=== PATIENT | female | born 1950 | race Caucasian/White ===

== ENCOUNTER 2019-09-19 09:23 | Emergency (ER) | payer MEDICARE, OTHER ==
[2019-09-19] MEDS ORDERED: Sodium Chloride 0.9% 10 ML Syringe FLUSH PRN (10:05)
[2019-09-19] MEDS ORDERED: Ondansetron 4 MG/2 ML SDV IVPUSH ONE (10:05)
[2019-09-19] MEDS ORDERED: Sodium Chloride 0.9% 1,000 ML IV STA (10:05)
[2019-09-19] MEDS ORDERED: HYDROmorphone 0.5 MG/0.5 ML Syringe IVPUSH ONE (10:06)
[2019-09-19] MEDS ORDERED: Famotidine 20 MG/2 ML SDV IVPUSH ONE (10:07)
--- NOTE | 2019-09-19 11:04 | EDM.PDOC ---
ED HPI GENERAL MEDICAL PROBLEM - General Chief Complaint: Abdominal Pain Stated Complaint: ABDOMINAL PAIN Time Seen by Provider: 09/19/19 09:36 Source of Information: Reports: Patient History Limitations: Reports: No Limitations - History of Present Illness INITIAL COMMENTS - FREE TEXT/NARRATIVE: The patient presents with nausea and abdominal pain. This has been going on for about 3 weeks. The yokasta has been worse the past couple of days. The pain is worse after eating and at night. She has no fever, chills, cough, congestion or runny nose. She still has her gallbladder and appendix. She feels some burning in her chest at times. She has no shortness of breath with it. She has no dysuria or diarrhea. Onset: Gradual Duration: Week(s): (3) Location: Reports: Chest, Abdomen Quality: Reports: Burning, Sharp Severity: Moderate Improves with: Reports: None Worsens with: Reports: None Associated Symptoms: Reports: Chest Pain, Nausea/Vomiting. Denies: Cough, Fever /Chills, Headaches, Shortness of Breath Epigastric Pain Score (Numeric/FACES): 4 - Related Data Allergies Allergy/AdvReac Type Severity Reaction Status Date / Time tramadol Allergy Cannot Verified 09/19/19 09:32 Remember lisinopril AdvReac Cough Verified 09/19/19 09:32 meperidine AdvReac Nausea and Verified 09/19/19 09:32 Vomiting Home Meds: Home Meds Ascorbic Acid [Vitamin C] 500 mg PO BID 09/19/19 [History] Calcium Carbonate [Calcium] 1,000 mg PO ASDIRECTED 09/19/19 [History] Cholecalciferol (Vitamin D3) [Vitamin D3] 1,000 unit PO DAILY 09/19/19 [History] Cyanocobalamin (Vitamin B-12) [Vitamin B-12] 2,500 mcg PO DAILY 09/19/19 [ History] Dulaglutide [Trulicity] 1.5 mg SQ ASDIRECTED 09/19/19 [History] Estrogens, Conjugated [Premarin] 0.625 mg PO DAILY 09/19/19 [History] Fish Oil/[place]-3 Fatty Acids [Fish Oil 1,000 MG] 1 dose PO ASDIRECTED 09/19/19 [ History] Fluconazole [Diflucan] 150 mg PO DAILY 09/19/19 [History] Losartan [Cozaar] 25 mg PO DAILY 09/19/19 [History] Omeprazole Magnesium [Prilosec Otc] 20 mg PO DAILY #15 tablet. 09/19/19 [Rx] Pantoprazole [ProTONIX] 40 mg PO DAILY 09/19/19 [History] Pravastatin [Pravachol] 40 mg PO DAILY 09/19/19 [History] Red Yeast Rice 1 dose PO ASDIRECTED 09/19/19 [History] glipiZIDE [Glipizide Xl] 2.5 mg PO DAILY 09/19/19 [History] metFORMIN [Glucophage XR] 500 mg PO BID 09/19/19 [History] ED ROS GENERAL - Review of Systems Review Of Systems: See Below Constitutional: Reports: No Symptoms HEENT: Reports: No Symptoms Respiratory: Reports: No Symptoms Cardiovascular: Reports: Chest Pain Endocrine: Reports: No Symptoms GI/Abdominal: Reports: Abdominal Pain, Nausea. Denies: Diarrhea, Vomiting : Reports: No Symptoms Musculoskeletal: Reports: No Symptoms ED EXAM, GI/ABD - Physical Exam Exam: See Below Exam Limited By: No Limitations General Appearance: Alert, No Apparent Distress Ears: Normal External Exam Nose: Normal Inspection Head: Atraumatic, Normocephalic Neck: Normal Inspection Respiratory/Chest: No Respiratory Distress, Lungs Clear, Normal Breath Sounds Cardiovascular: Regular Rate, Rhythm, No Edema, No Murmur GI/Abdominal Exam: Soft, No Organomegaly, No Mass, Tender (Moderate tenderness to the epigastric region and RUQ) Back Exam: Normal Inspection EKG INTERPRETATION EKG Date: 09/19/19 Time: 10:21 Rhythm: NSR Rate (Beats/Min): 68 Le[place]: LAD-Left Leoti Deviation P-Wave: Present QRS: Normal ST-T: Normal QT: Normal EKG Interpretation Comments: Q waves in the inferior leads Course - Vital Signs Last Recorded V/S: Last Vital Signs Temp 97.5 F 09/19/19 09:29 Pulse 73 09/19/19 09:29 Resp 16 09/19/19 09:29 BP 154/92 H 09/19/19 09:29 Pulse Ox 100 09/19/19 09:29 - Orders/Labs/Meds Orders: Active Orders 24 hr Category Date Time Status EKG Documentation Completion [RC] ASDIRECTED Care 09/19/19 10:06 Active Peripheral IV Care [RC] . DIRECTED Care 09/19/19 10:05 Active Sodium Chloride 0.9% [Saline Flush] Med 09/19/19 10:05 Active 10 ml FLUSH ASDIRECTED PRN ED Antiemetic Medication Reflex [OM.PC] Stat Oth 09/19/19 10:05 Ordered Peripheral IV Insertion Adult [OM.PC] Stat Oth 09/19/19 10:05 Ordered EKG 12 Lead [EK] Stat Ther 09/19/19 10:06 Ordered Medication Orders Sodium Chloride (Saline Flush) 10 ml FLUSH ASDIRECTED PRN PRN Reason: Keep Vein Open Last Admin: 09/19/19 10:23 Dose: 10 ml Labs: Laboratory Tests 09/19/19 09/19/19 09/19/19 Range/Units 09:55 09:55 11:10 WBC 6.80 (3.98-10.04) K/mm3 RBC 4.80 (3.98-5.22) M/mm3 Hgb 14.0 (11.2-15.7) gm/dl Hct 42.5 (34.1-44.9) % MCV 88.5 (79.4-94.8) fl MCH (25.6-32.2) pg MCHC 32.9 (32.2-35.5) g/dl RDW Std Deviation 43.1 (36.4-46.3) fL Plt Count 207 (182-369) K/mm3 MPV 9.6 (9.4-12.3) fl Neut % (Auto) 64.7 (34.0-71.1) % Lymph % (Auto) 26.2 (19.3-51.7) % Taney % (Auto) 6.6 (4.7-12.5) % Eos % (Auto) 1.9 (0.7-5.8) Baso % (Auto) 0.3 (0.1-1.2) % Neut # (Auto) 4.40 (1.56-6.13) K/mm3 Lymph # (Auto) 1.78 (1.18-3.74) K/mm3 Taney # (Auto) 0.45 H (0.24-0.36) K/mm3 Eos # (Auto) 0.13 (0.04-0.36) K/mm3 Baso # (Auto) 0.02 (0.01-0.08) K/mm3 Manual Slide Review Not Reportable Sodium 144 (136-145) mEq/L Potassium 4.1 (3.5-5.1) mEq/L Chloride 106 (98-107) mEq/L Carbon Dioxide 25 (21-32) mEq/L Anion Gap 17.1 H (5-15) BUN 22 H (7-18) mg/dL Creatinine 1.1 H (0.55-1.02) mg/dL Est Cr Clr Drug Dosing 39.25 mL/min Estimated GFR (MDRD) 50 (>60) mL/min BUN/Creatinine Ratio 20.0 H (14-18) Glucose 100 (80-115) mg/dL Calcium 9.9 (8.5-10.1) mg/dL Total Bilirubin 0.5 (0.2-1.0) mg/dL AST 12 L (15-37) U/L ALT 33 (14-59) U/L Alkaline Phosphatase 62 (46-116) U/L Troponin I < 0.017 (0.00-0.056) ng/mL Total Protein 7.2 (6.4-8.2) g/dl Albumin 4.0 (3.4-5.0) g/dl Globulin 3.2 gm/dL Albumin/Globulin Ratio 1.3 (1-2) Lipase 158 (73-393) U/L Urine Color Yellow (Yellow) Urine Appearance Clear (Clear) Urine pH 5.5 (5.0-8.0) Ur Specific Cass 1.025 (1.005-1.030) Urine Protein Negative (Negative) Urine Glucose (UA) Negative (Negative) Urine Ketones Negative (Negative) Urine Occult Blood Negative (Negative) Urine Nitrite Negative (Negative) Urine Bilirubin Negative (Negative) Urine Urobilinogen 0.2 (0.2-1.0) Ur Leukocyte Esterase 1+ H (Negative) Urine RBC 0-5 (0-5) /hpf Urine WBC 5-10 H (0-5) /hpf Ur Squamous Epith Cells 0-5 (0-5) /hpf Amorphous Sediment Few H (NOT SEEN) /hpf Urine Bacteria Few (FEW) /hpf Urine Mucus Not seen (FEW) /hpf Meds: Medications Generic Name Dose Route Start Last Admin Trade Name Freq PRN Reason Stop Dose Admin Sodium Chloride 10 ml 09/19/19 10:05 09/19/19 10:23 Saline Flush FLUSH 10 ml ASDIRECTED PRN Administration Keep Vein Open Discontinued Medications Generic Name Dose Route Start Last Admin Trade Name Lazaro PRN Reason Stop Dose Admin Famotidine 20 mg 09/19/19 10:07 09/19/19 10:23 Pepcid IVPUSH 09/19/19 10:08 20 mg ONETIME ONE Administration Hydromorphone HCl 0.5 mg 09/19/19 10:06 Dilaudid IVPUSH 09/19/19 10:07 ONETIME ONE Sodium Chloride 1,000 mls @ 1,000 mls/hr 09/19/19 10:05 09/19/19 10:23 Normal Saline IV 09/19/19 11:04 1,000 mls/hr .BOLUS STA Administration Ondansetron HCl 4 mg 09/19/19 10:05 09/19/19 10:23 Zofran IVPUSH 09/19/19 10:06 4 mg ONETIME ONE Administration - Re-Assessments/Exams Free Text/Narrative Re-Assessment/Exam: 09/19/19 11:04 I ordered an IV NS 1L bolus, zofran 4mg IV, labs, UA and an US of her abdomen and pelvis. 09/19/19 12:29 Her anion gap was elevated at 17.1. Her creatinine was slightly elevated at 1.1. Her troponin was negative. Her EKG show a NSR with no acute changes. 09/19/19 12:40 Her CBC looks good. Her lipase was normal. Her UA shows a UTI. Her US shows gallbladder wall thickening most likely relating to less than optimal distention. Mild amount of sludge seen within the gallbladder. No biliary duct dilatation or pericholecystic fluid is seen. Small cyst within the right kidney. No additional abnormality is appreciated on right upper quadrant abdominal US. Departure - Departure Time of Disposition: 12:50 Disposition: Home, Self-Care 01 Condition: Good Clinical Impression: Gallbladder sludge, Biliary colic UTI (urinary tract infection) Qualifiers: Urinary tract infection type: site unspecified Hematuria presence: without hematuria Qualified Code(s): N39.0 - Urinary tract infection, site not specified - Discharge Information *PRESCRIPTION DRUG MONITORING PROGRAM REVIEWED*: Not Applicable *COPY OF PRESCRIPTION DRUG MONITORING REPORT IN PATIENT DORIE: Not Applicable Prescriptions: Omeprazole Magnesium [Prilosec Otc] 20 mg PO DAILY #15 tablet.dr Referrals: Chikis Andrew PA-C [Primary Care Provider] - Joseph Rojas MD [Physician] - 1 Week Forms: ED Department Discharge Additional Instructions: Try to avoid fried, fatty foods. Take tylenol or motrin or pain. Take the prilosec daily for 2 weeks. Take the keflex 2 times per day for 5 days. Follow up with Dr Rojas. Please return if you are worse. Sepsis Event Note - Evaluation Sepsis Screening Result: No Definite Risk - Focused Exam Vital Signs: Vital Signs Temp Pulse Resp BP Pulse Ox 09/19/19 09:29 97.5 F 73 16 154/92 H 100 Date Exam was Performed: 09/19/19 Time Exam was Performed: 12:48 - My Orders Last 24 Hours: My Active Orders 09/19/19 10:05 Peripheral IV Care [RC] . DIRECTED Sodium Chloride 0.9% [Saline Flush] 10 ml FLUSH ASDIRECTED PRN ED Antiemetic Medication Reflex [OM.PC] Stat Peripheral IV Insertion Adult [OM.PC] Stat 09/19/19 10:06 EKG Documentation Completion [RC] ASDIRECTED EKG 12 Lead [EK] Stat - Assessment/Plan Last 24 Hours: My Active Orders 09/19/19 10:05 Peripheral IV Care [RC] . DIRECTED Sodium Chloride 0.9% [Saline Flush] 10 ml FLUSH ASDIRECTED PRN ED Antiemetic Medication Reflex [OM.PC] Stat Peripheral IV Insertion Adult [OM.PC] Stat 09/19/19 10:06 EKG Documentation Completion [RC] ASDIRECTED EKG 12 Lead [EK] Stat
--- NOTE | 2019-09-19 11:38 | US ---
Limited abdominal ultrasound: Multiple real-time images were obtained of the upper right abdomen. Pancreas appears within normal limits. Small portion of the pancreatic tail is not visualized on this exam. Liver contains no focal abnormality. Gallbladder not optimally distended. Gallbladder wall is somewhat thickened which most likely relates to lack of distention. Mild amount of sludge is seen within the gallbladder. No shadowing gallstones are noted. No biliary duct dilatation is seen. Multiple right renal cysts are noted. Largest cyst measures about 1.4 cm. Impression: 1. Gallbladder wall thickening most likely relating to less than optimal distention. Mild amount of sludge seen within the gallbladder. No biliary duct dilatation or pericholecystic fluid is seen. 2. Small cyst within the right kidney. 3. No additional abnormality is appreciated on right upper quadrant abdominal ultrasound. Diagnostic code #2 This report was dictated in [place] Standard Time
== END 2019-09-19 13:09 | disposition home or self-care (01) ==
LOC: JD.ED 09:23
DX: K80.50 Calculus of bile duct without cholangitis or cholecystitis without obstruction (principal); K82.8 Other specified diseases of gallbladder; N39.0 Urinary tract infection, site not specified; Z88.5 Allergy status to narcotic agent; Z88.8 Allergy status to other drugs, medicaments and biological substances
CPT/HCPCS: 36415; 76705; 80053; 81001; 83690; 84484; 85025; 93005; 96361; 96374; 96375; 99284; J2405; J3490; J7030; 93010

== ENCOUNTER 2019-10-12 06:57 | Day surgery (SDC) | payer MEDICARE, OTHER ==
[~2019-10-12 06:57] MED LIST: Lactated Ringers 1,000 ML IV SCH; Lidocaine 1%/Sod Bicarbonate in NS 8.4% 1 ML Syringe IDERM PRN; Sodium Chloride 0.9% 10 ML Syringe FLUSH PRN
--- NOTE | 2019-10-12 07:21 | PCM.PREANE ---
Preanesthetic Assessment - Procedure Proposed Procedure: EGD/Colonoscopy - Anesthesia/Transfusion/Family Hx Anesthesia History: Prior Anesthesia Reaction (nausea) Family History of Anesthesia Reaction: No Transfusion History: Unknown - Review of Systems General: No Symptoms Pulmonary: No Symptoms Cardiovascular: No Symptoms Gastrointestinal: No Symptoms Neurological: No Symptoms Other: Reports: Diabetes (121 @07:20), Neck Pain - Physical Assessment NPO Status Date: 10/11/19 NPO Status Time: 00:00 Height: 1.57 m Weight: 63.049 kg ASA Class: 2 Mental Status: Alert & Oriented x3 Airway Class: Mallampati = 2 Dentition: Reports: Normal Dentition Thyro-Mental Finger Breadths: 2 Mouth Opening Finger Breadths: 2 ROM/Head Extension: Full Lungs: Clear to Auscultation, Normal Respiratory Effort Cardiovascular: Regular Rate, Regular Rhythm - Imaging/EKG Impressions: EKG SR Rate 68 - Allergies Allergies/Adverse Reactions: Allergies Allergy/AdvReac Type Severity Reaction Status Date / Time tramadol Allergy Cannot Verified 10/11/19 16:07 Remember lisinopril AdvReac Cough Verified 10/11/19 16:07 meperidine AdvReac Nausea and Verified 10/11/19 16:07 Vomiting - Blood Blood Available: No Product(s) Available: None - Anesthesia Plan Pre-Op Medication Ordered: None - Acknowledgements Anesthesia Type Planned: MAC Pt an Appropriate Candidate for the Planned Anesthesia: Yes Alternatives and Risks of Anesthesia Discussed w Pt/Guardian: Yes Pt/Guardian Understands and Agrees with Anesthesia Plan: Yes PreAnesthesia Questionnaire HEENT History: Reports: Other (See Below) Other HEENT History: impacted cerumen, wears glasses, has dentures Cardiovascular History: Reports: High Cholesterol, Hypertension Respiratory History: Reports: None Gastrointestinal History: Reports: GERD, Other (See Below) Other Gastrointestinal History: acid reflux, hemorrhoid Genitourinary History: Reports: Other (See Below) Other Genitourinary History: dysuria, flank pain 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: 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: Other (See Below) Other OB/BYN History: vaginal atrophy, vaginitis, bacterial vagnosis Musculoskeletal History: Reports: Arthritis, Other (See Below) Other Musculoskeletal History: lumbago with sciatica, bunion correction Neurological History: Reports: Other (See Below) Other Neuro History: neck pain Psychiatric History: Reports: None Endocrine/Metabolic History: Reports: Diabetes, Type II Hematologic History: Reports: None Immunologic History: Reports: None Oncologic (Cancer) History: Reports: None Dermatologic History: Reports: None - Past Surgical History Head Surgeries/Procedures: Reports: None HEENT Surgical History: Reports: Cataract Surgery, Tonsillectomy Cardiovascular Surgical History: Reports: None Respiratory Surgical History: Reports: None GI Surgical History: Reports: Colonoscopy, EGD Female Surgical History: Reports: Hysterectomy Male Surgical History: Reports: None Endocrine Surgical History: Reports: None Neurological Surgical History: Reports: None Musculoskeletal Surgical History: Reports: Carpal Tunnel Oncologic Surgical History: Reports: None Dermatological Surgical History: Reports: None - SUBSTANCE USE Smoking Status *Q: Never Smoker Recreational Drug Use History: No - HOME MEDS Home Medications: Home Meds Ascorbic Acid [Vitamin C] 500 mg PO BID 09/19/19 [History] Cholecalciferol (Vitamin D3) [Vitamin D3] 1,000 unit PO DAILY 09/19/19 [History] Cyanocobalamin (Vitamin B-12) [Vitamin B-12] 2,500 mcg PO DAILY 09/19/19 [ History] Dulaglutide [Trulicity] 1.5 mg SQ WE 09/19/19 [History] Losartan [Cozaar] 25 mg PO DAILY 09/19/19 [History] Pantoprazole [ProTONIX] 40 mg PO DAILY 09/19/19 [History] Pravastatin [Pravachol] 40 mg PO DAILY 09/19/19 [History] Red Yeast Rice 600 dose PO Q48H 09/19/19 [History] glipiZIDE [Glipizide Xl] 2.5 mg PO DAILY 09/19/19 [History] metFORMIN [Glucophage XR] 1,000 mg PO BID 09/19/19 [History] Calcium Carbonate/Vitamin D3 [Calcium 500-Vit D3 400 Chew Tb] 2 tab PO Q48H [History] Fish Oil/DHA/EPA [Fish Oil 1,200 MG] 1 cap PO Q48H 10/11/19 [History] - CURRENT (IN HOUSE) MEDS Current Meds: Current Medications Lactated Ringer's (Ringers, Lactated) 1,000 mls @ 125 mls/hr IV ASDIRECTED MATHEUS Stop: 10/12/19 23:00 Lidocaine/Sodium Bicarbonate (Buffered Lidocaine 1% In Ns 8.4%) 0.25 ml IDERM ONETIME PRN PRN Reason: Prior to IV Start Stop: 10/12/19 18:00 Sodium Chloride (Saline Flush) 10 ml FLUSH ASDIRECTED PRN PRN Reason: Keep Vein Open Stop: 10/12/19 18:00
[2019-10-12] MEDS ORDERED: Ondansetron 4 MG/2 ML SDV ONE (07:28)
[2019-10-12] MEDS ORDERED: Propofol 200 MG/20 ML SDV ONE ×2 (07:28→08:21)
[2019-10-12] MEDS ORDERED: Lidocaine 1% 4 ML ONE (07:29)
[2019-10-12] MEDS ORDERED: fentaNYL 100 MCG/2 ML SDV ONE (07:29)
[2019-10-12] MEDS ORDERED: Midazolam 1 MG/ML 2 ML SDV ONE (07:29)
--- NOTE | 2019-10-12 09:10 | PCM48HPAN ---
Post Anesthesia Note - EVALUATION WITHIN 48HRS OF ANESTHETIC Vital Signs in Normal Range: Yes Patient Participated in Evaluation: Yes Respiratory Function Stable: Yes Airway Patent: Yes Cardiovascular Function Stable: Yes Hydration Status Stable: Yes Pain Control Satisfactory: Yes Nausea and Vomiting Control Satisfactory: Yes Mental Status Recovered: Yes Vital Signs: Last Vital Signs Temp 36.1 C 10/12/19 07:10 Pulse 72 10/12/19 07:10 Resp 16 10/12/19 07:10 BP 138/92 H 10/12/19 07:10 Pulse Ox 96 10/12/19 07:10
--- NOTE | 2019-10-12 09:20 | PCM.PRNOTE ---
- Free Text/Narrative Note: Date: 10/12/2019 Procedure: diagnostic esophagogastroduodenoscopy, screening colonoscopy Indications: refractory GERD Endoscopist: Joseph Rojas MD Findings: hypopigmented well delineated mucosal lesion at the second portion of the duodenum. Friable gastric body with approximately 20-30 gastric polyps noted in the body and fundus. Small hiatal hernia. Ileocecal valve visualized. Prep was pretty good. One small sessile and one pedunculated polyp removed with remnant fulgurated, both in the sigmoid colon. No diverticular disease. Patulous anus with multiple skin tags and prolapsing internal hemorrhoids. Detailed Report: The patient was taken to the endoscopy suite and placed in left lateral decubitus position. Time out was performed and monitored anesthesia care was initiated. A bite block was placed and the endoscope was inserted orally and advanced to the second portion of the duodenum. A well-delineated yellow plaque like lesion was noted and biopsied. The remainder of the duodenum appeared normal. The pylorus appeared normal as did the antrum; a sample mucosal biopsy of the antrum was obtained. The gastric body had a mild friable, nobby texture; a biopsy was obtained. The proximal half of the stomach was notable for several polyps. The largest of which was at the mid body along the greater curve and this was biopsied. The remaining polyps were grossly similar, and scattered around the body, fundus, and cardia. On retroflexion, a small hiatal hernia was noted. The Z line appeared normal with no significant gross esophagitis or metaplasia. The hypopharnyx was well visualized and vocal cords and aryepiglottic folds appeared normal. The scope was withdrawn the patient was set up for colonoscopy. The anus appeared patulous with multiple skin tags. The sphincter was hypotonic , and there was mild prolapse of internal hemorrhoids noted. Digital rectal exam was unremarkable. The lubricated colonoscope was then inserted and advanced all the way to the cecum. The colon was redundant. The ileocecal valve was visualized. The prep was noted to be pretty good, with a fair amount of clear yellow effluent with fluffy debris. On slow withdrawal of the scope, mucosal surfaces were carefully inspected. In the sigmoid, two polyps were removed (one with forceps, one with snare) and bases fulgurated. No diverticular disease was noted. Grade II internal hemorrhoids were seen on retroflexion of the scope within the rectum. The patient tolerated the procedure well. Joseph Rojas MD General Surgery
== END 2019-10-12 09:55 | disposition home or self-care (01) ==
LOC: JD.SDS 06:57
PROVIDERS: ATTEND Surgery
DX: Z12.11 Encounter for screening for malignant neoplasm of colon (principal); K31.7 Polyp of stomach and duodenum; K21.9 Gastro-esophageal reflux disease without esophagitis; D12.5 Benign neoplasm of sigmoid colon; L91.8 Other hypertrophic disorders of the skin; K64.8 Other hemorrhoids; Q43.8 Other specified congenital malformations of intestine; K64.1 Second degree hemorrhoids; K44.9 Diaphragmatic hernia without obstruction or gangrene; I10 Essential (primary) hypertension; E11.9 Type 2 diabetes mellitus without complications; E78.5 Hyperlipidemia, unspecified; E78.00 Pure hypercholesterolemia, unspecified; Z88.8 Allergy status to other drugs, medicaments and biological substances; Z79.84 Long term (current) use of oral hypoglycemic drugs; Z79.899 Other long term (current) drug therapy
CPT/HCPCS: 43239; 45380; 45385; 82962; J2001; J2250; J2405; J2704; J3010; J7120; 00813

== ENCOUNTER 2019-10-25 09:09 | Emergency (ER) | payer MEDICARE, OTHER ==
[2019-10-25] MEDS ORDERED: Sodium Chloride 0.9% 10 ML Syringe FLUSH PRN (09:43)
[2019-10-25] MEDS ORDERED: Ondansetron 4 MG/2 ML SDV IVPUSH ONE (09:44)
--- NOTE | 2019-10-25 10:00 | EDM.PDOC ---
ED HPI GENERAL MEDICAL PROBLEM - General Chief Complaint: General Stated Complaint: HIGH BLOOD PRESSURE AND DIZZY Time Seen by Provider: 10/25/19 09:25 Source of Information: Reports: Patient, RN Notes Reviewed - History of Present Illness INITIAL COMMENTS - FREE TEXT/NARRATIVE: 68-year-old female comes in with vertigo, nausea, not feeling well for the past 1 to 2 weeks. States she did have colonoscopy about 2 weeks ago which did check out fine. She did have endoscopy that confirmed hiatal hernia. Does have longstanding history of acid reflux. She was started on some type of antacid medication for that. The past 2 weeks she has been having some nonspecific dizziness, nausea but no vomiting. This morning shortly after getting dressed she had onset of much more severe dizziness that she does describe as a vertigo worse with motion better to lie still. Also does have posterior headache and neck pressure which she also has had intermittently in the past. She does have a mild nonproductive cough. No current abdominal pain fever or chills. No visual difficulty, no focal weakness. Middle Head Pain Score (Numeric/FACES): 3 - Related Data Allergies Allergy/AdvReac Type Severity Reaction Status Date / Time tramadol Allergy Cannot Verified 10/25/19 09:20 Remember lisinopril AdvReac Cough Verified 10/25/19 09:20 meperidine AdvReac Nausea and Verified 10/25/19 09:20 Vomiting Home Meds: Home Meds Ascorbic Acid [Vitamin C] 500 mg PO BID 09/19/19 [History] Cholecalciferol (Vitamin D3) [Vitamin D3] 1,000 unit PO DAILY 09/19/19 [History] Cyanocobalamin (Vitamin B-12) [Vitamin B-12] 2,500 mcg PO DAILY 09/19/19 [ History] Dulaglutide [Trulicity] 1.5 mg SQ WE 09/19/19 [History] Losartan [Cozaar] 25 mg PO DAILY 09/19/19 [History] Pantoprazole [ProTONIX] 40 mg PO DAILY 09/19/19 [History] Pravastatin [Pravachol] 40 mg PO DAILY 09/19/19 [History] Red Yeast Rice 600 dose PO Q48H 09/19/19 [History] glipiZIDE [Glipizide Xl] 2.5 mg PO DAILY 09/19/19 [History] metFORMIN [Glucophage XR] 1,000 mg PO BID 09/19/19 [History] Calcium Carbonate/Vitamin D3 [Calcium 500-Vit D3 400 Chew Tb] 2 tab PO Q48H [History] Fish Oil/DHA/EPA [Fish Oil 1,200 MG] 1 cap PO Q48H 10/11/19 [History] Past Medical History HEENT History: Reports: Other (See Below) Other HEENT History: impacted cerumen, wears glasses, has dentures Cardiovascular History: Reports: High Cholesterol, Hypertension Respiratory History: Reports: None Gastrointestinal History: Reports: GERD, Other (See Below) Other Gastrointestinal History: acid reflux, hemorrhoid Genitourinary History: Reports: Other (See Below) Other Genitourinary History: dysuria, flank pain 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) Other IP LITIGATION ASSOCIATE History: vaginal atrophy, vaginitis, bacterial vagnosis Musculoskeletal History: Reports: Arthritis, Other (See Below) Other Musculoskeletal History: lumbago with sciatica, bunion correction Neurological History: Reports: Other (See Below) Other Neuro History: neck pain Psychiatric History: Reports: None Endocrine/Metabolic History: Reports: Diabetes, Type II Hematologic History: Reports: None Immunologic History: Reports: None Oncologic (Cancer) History: Reports: None Dermatologic History: Reports: None - Past Surgical History Head Surgeries/Procedures: Reports: None HEENT Surgical History: Reports: Cataract Surgery, Tonsillectomy Cardiovascular Surgical History: Reports: None Respiratory Surgical History: Reports: None GI Surgical History: Reports: Colonoscopy, EGD Female Surgical History: Reports: Hysterectomy Endocrine Surgical History: Reports: None Neurological Surgical History: Reports: None Musculoskeletal Surgical History: Reports: Carpal Tunnel Oncologic Surgical History: Reports: None Dermatological Surgical History: Reports: None Social & Family History - Tobacco Use Smoking Status *Q: Never Smoker Second Hand Smoke Exposure: No - Caffeine Use Caffeine Use: Reports: Coffee - Recreational Drug Use Recreational Drug Use: No ED ROS GENERAL - Review of Systems Review Of Systems: See Below Constitutional: Denies: Fever, Chills HEENT: Reports: Vertigo. Denies: Ear Discharge, Ear Pain, Sinus Problem, Throat Pain, Vision Change Respiratory: Denies: Shortness of Breath Cardiovascular: Denies: Chest Pain GI/Abdominal: Reports: Abdominal Pain (Frequent mild upper abdominal discomfort) , Decreased Appetite, Nausea. Denies: Vomiting Musculoskeletal: Reports: Neck Pain, Back Pain Skin: Reports: No Symptoms Neurological: Reports: Dizziness, Headache. Denies: Numbness, Tingling, Trouble Speaking, Difficulty Walking, Change in Speech ED EXAM, GENERAL - Physical Exam Exam: See Below General Appearance: Alert, Mild Distress Eye Exam: Bilateral Eye: PERRL Ear Exam: Bilateral Ear: Canal Normal, TM normal Nose: Normal Inspection Throat/Mouth: Normal Inspection, Normal Oropharynx Head: Atraumatic. No: Facial Swelling Neck: Supple, Full Range of Motion Respiratory/Chest: No Respiratory Distress, Lungs Clear, Normal Breath Sounds Cardiovascular: Regular Rate, Rhythm GI/Abdominal: Soft, Non-Tender Extremities: Normal Inspection, Normal Range of Motion Neurological: Alert, Oriented, No Motor/Sensory Deficits, Other (finger to nose testing nl) Skin Exam: Warm, Dry, Normal Color Course - Vital Signs Last Recorded V/S: Last Vital Signs Temp 97.9 F 10/25/19 11:35 Pulse 80 10/25/19 11:35 Resp 20 10/25/19 11:35 BP 129/78 10/25/19 11:35 Pulse Ox 97 10/25/19 11:35 - Orders/Labs/Meds Labs: Laboratory Tests 10/25/19 10/25/19 10/25/19 Range/Units 09:30 09:50 09:50 WBC 6.42 (3.98-10.04) K/mm3 RBC 4.65 (3.98-5.22) M/mm3 Hgb 13.5 (11.2-15.7) gm/dl Hct 41.1 (34.1-44.9) % MCV 88.4 (79.4-94.8) fl MCH 29.0 (25.6-32.2) pg MCHC 32.8 (32.2-35.5) g/dl RDW Std Deviation 42.2 (36.4-46.3) fL Plt Count 239 (182-369) K/mm3 MPV 9.1 L (9.4-12.3) fl Neut % (Auto) 66.8 (34.0-71.1) % Lymph % (Auto) 24.9 (19.3-51.7) % [place] % (Auto) 6.7 (4.7-12.5) % Eos % (Auto) 1.4 (0.7-5.8) Baso % (Auto) 0.2 (0.1-1.2) % Neut # (Auto) 4.29 (1.56-6.13) K/mm3 Lymph # (Auto) 1.60 (1.18-3.74) K/mm3 [place] # (Auto) 0.43 H (0.24-0.36) K/mm3 Eos # (Auto) 0.09 (0.04-0.36) K/mm3 Baso # (Auto) 0.01 (0.01-0.08) K/mm3 Sodium 144 (136-145) mEq/L Potassium 4.2 (3.5-5.1) mEq/L Chloride 108 H (98-107) mEq/L Carbon Dioxide 23 (21-32) mEq/L Anion Gap 17.2 H (5-15) BUN 19 H (7-18) mg/dL Creatinine 1.0 (0.55-1.02) mg/dL Est Cr Clr Drug Dosing 45.16 mL/min Estimated GFR (MDRD) 55 (>60) mL/min BUN/Creatinine Ratio 19.0 H (14-18) Glucose 113 (80-115) mg/dL POC Glucose 116 H (80-115) mg/dL Calcium 9.8 (8.5-10.1) mg/dL Total Bilirubin 0.4 (0.2-1.0) mg/dL AST 16 (15-37) U/L ALT 27 (14-59) U/L Alkaline Phosphatase 60 (46-116) U/L Total Protein 7.1 (6.4-8.2) g/dl Albumin 4.0 (3.4-5.0) g/dl Globulin 3.1 gm/dL Albumin/Globulin Ratio 1.3 (1-2) Meds: Medications Discontinued Medications Generic Name Dose Route Start Last Admin Trade Name Freq PRN Reason Stop Dose Admin Meclizine HCl 12.5 mg 10/25/19 10:46 10/25/19 11:00 Antivert PO 10/25/19 10:47 12.5 mg ONETIME ONE Administration Ondansetron HCl 4 mg 10/25/19 09:44 10/25/19 10:02 Zofran IVPUSH 10/25/19 09:45 4 mg ONETIME ONE Administration Sodium Chloride 10 ml 10/25/19 09:43 10/25/19 10:05 Saline Flush FLUSH 10 ml ASDIRECTED PRN Administration Keep Vein Open - Re-Assessments/Exams Free Text/Narrative Re-Assessment/Exam: 10/25/19 11:12. Labs were nl, Head CT no acute findings. We did give zofran, antiver and that with rest and time did seem to help, her BP did trend down, discharge instr. as documented. Departure - Departure Time of Disposition: 11:24 Disposition: Home, Self-Care 01 Condition: Fair Clinical Impression: Vertigo, Labyrinthitis - Discharge Information Instructions: Vertigo, [id number] Referrals: Chikis Andrew PA-C [Primary Care Provider] - Forms: ED Department Discharge Additional Instructions: Rest, move slowly and carefully, antivert 12.5 mg twice daily for 3 days or until dizziness has completely resolved. That is available OTC, you will need to ask your pharmacist for that medication. Check your blood pressure 2-3 times daily, keep a record of those readings and bring those to the clinic with you at time of your follow-up appointment next week. See your medical provider next week in follow-up,call [phone] for appointment. Return to ED as needed if symptoms worsening in any way. Sepsis Event Note - Evaluation Sepsis Screening Result: No Definite Risk - Focused Exam Date Exam was Performed: 10/27/19 Time Exam was Performed: 17:50
--- NOTE | 2019-10-25 10:27 | CT ---
Head CT Technique: Multiple axial sections through the brain were obtained. Intravenous contrast was not utilized. Comparison: Previous MRI brain of 10/16/16. Findings: Ventricles along with basal cisterns and sulci over the convexities are within normal limits for the patient's age. No abnormal parenchymal densities are seen. No evidence of intracranial hemorrhage. No midline shift or mass-effect is seen. Bone window settings were reviewed. No acute calvarial abnormality is identified. Visualized mastoid sinuses are clear. Visualized paranasal sinuses are clear. Impression: 1. Nothing acute is seen on noncontrast head CT exam. Diagnostic code #1 This report was dictated in MDT
[2019-10-25] MEDS ORDERED: Meclizine 12.5 MG Tab PO ONE (10:46)
== END 2019-10-25 11:35 | disposition home or self-care (01) ==
LOC: JD.ED 09:09
DX: H83.09 Labyrinthitis, unspecified ear (principal); E78.00 Pure hypercholesterolemia, unspecified; I10 Essential (primary) hypertension; K21.9 Gastro-esophageal reflux disease without esophagitis; E11.9 Type 2 diabetes mellitus without complications; Z88.5 Allergy status to narcotic agent; Z88.8 Allergy status to other drugs, medicaments and biological substances; Z79.899 Other long term (current) drug therapy; Z79.4 Long term (current) use of insulin
CPT/HCPCS: 36415; 70450; 80053; 82962; 85025; 96374; 99284; A9270; J2405; 99283

== ENCOUNTER 2020-04-23 08:54 | Observation (INO) | payer MEDICARE, OTHER ==
--- NOTE | 2020-04-23 08:58 | PCM.PREANE ---
Preanesthetic Assessment - Procedure Proposed Procedure: Laparoscopic Hiatal Hernia Repair with Mesh - Anesthesia/Transfusion/Family Hx Anesthesia History: Prior Anesthesia Reaction Type of Anesthesia Reaction: Excessive Nausea/Vomiting Family History of Anesthesia Reaction: No Transfusion History: Prior Transfusion Without Reaction Intubation History: Unknown - Review of Systems General: No Symptoms Pulmonary: No Symptoms (ETOH: rarely) Cardiovascular: No Symptoms (History of HTN, Elevated cholesterol) Gastrointestinal: No Symptoms (GERD, Hiatal hernia) Neurological: No Symptoms, Dizziness (Blood sugar related.), Numbness (left side lumbago with sciatica, none present today/flares up with exertion.) Other: Reports: Diabetes (am blood sugar= 137 @0700), 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 (Chronically rated pain at 4/5 out of 10)) - Physical Assessment NPO Status Date: 04/22/20 NPO Status Time: 21:00 Vital Signs: HR:65 Sat:100% B/P:157/82 Temp:96.8 Resp:16 Height: 1.6 m Weight: 63.503 kg ASA Class: 2 Mental Status: Alert & Oriented x3 Airway Class: Mallampati = 2 Dentition: Reports: Normal Dentition, Partial (lower), Caries Thyro-Mental Finger Breadths: 3 Mouth Opening Finger Breadths: 3 ROM/Head Extension: Full Lungs: Clear to Auscultation, Normal Respiratory Effort Cardiovascular: Regular Rate, Regular Rhythm, No Murmurs - Lab Values: All labs reviewed and noted and within acceptable ranges to proceed with scheduled procedure. - Imaging/EKG Impressions: EKG: SR rate= 68, Old inferior infarct Carotid US Study: Plaque noted worse on the right side than the left, velocity measurements within both internal carotid arteries correspond to stenosis in the range of 1-49%. Cardiolyte Stress Test: negative - Allergies Allergies/Adverse Reactions: Allergies Allergy/AdvReac Type Severity Reaction Status Date / Time tramadol Allergy Cannot Verified 04/23/20 08:22 Remember lisinopril AdvReac Cough Verified 10/25/19 09:20 meperidine AdvReac Nausea and Verified 10/25/19 09:20 Vomiting - Anesthesia Plan Pre-Op Medication Ordered: Other (scopalamine patch placed in preoperative area: behind right ear at 0921) - Acknowledgements Anesthesia Type Planned: General Anesthesia Pt an Appropriate Candidate for the Planned Anesthesia: Yes Alternatives and Risks of Anesthesia Discussed w Pt/Guardian: Yes Pt/Guardian Understands and Agrees with Anesthesia Plan: Yes PreAnesthesia Questionnaire HEENT History: Reports: Other (See Below) Other HEENT History: impacted cerumen, wears glasses, has dentures Cardiovascular History: Reports: High Cholesterol, Hypertension Respiratory History: Reports: None Gastrointestinal History: Reports: GERD, Hemorrhoids, Hiatal Hernia, Other (See Below) Other Gastrointestinal History: acid reflux, hemorrhoid Genitourinary History: Reports: Other (See Below) Other Genitourinary History: dysuria, flank pain 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 (See Below) Other OB/BYN History: vaginal atrophy, vaginitis, bacterial vagnosis Musculoskeletal History: Reports: Arthritis, Other (See Below) Other Musculoskeletal History: lumbago with sciatica, bunion correction Neurological History: Reports: Other (See Below) Other Neuro History: neck pain Psychiatric History: Reports: None Endocrine/Metabolic History: Reports: Diabetes, Type II Hematologic History: Reports: None Immunologic History: Reports: None Oncologic (Cancer) History: Reports: None Dermatologic History: Reports: None - Infectious Disease History Infectious Disease History: Reports: None - Past Surgical History Head Surgeries/Procedures: Reports: None HEENT Surgical History: Reports: Cataract Surgery, Tonsillectomy Cardiovascular Surgical History: Reports: None Respiratory Surgical History: Reports: None GI Surgical History: Reports: Colonoscopy, EGD Female Surgical History: Reports: Hysterectomy Male Surgical History: Reports: None Endocrine Surgical History: Reports: None Neurological Surgical History: Reports: None Musculoskeletal Surgical History: Reports: Carpal Tunnel Oncologic Surgical History: Reports: None Dermatological Surgical History: Reports: None - SUBSTANCE USE Smoking Status *Q: Never Smoker Recreational Drug Use History: No - HOME MEDS Home Medications: Home Meds Ascorbic Acid [Vitamin C] 500 mg PO DAILY 09/19/19 [History] Cholecalciferol (Vitamin D3) [Vitamin D3] 1,000 unit PO DAILY 09/19/19 [History] Cyanocobalamin (Vitamin B-12) [Vitamin B-12] 2,500 mcg PO DAILY 09/19/19 [History] Dulaglutide [Trulicity] 1.5 mg SQ WE 09/19/19 [History] Losartan [Cozaar] 25 mg PO DAILY 02/04/20 [History] Pravastatin [Pravachol] 40 mg PO DAILY 09/19/19 [History] Red Yeast Rice 600 dose PO Q48H 09/19/19 [History] glipiZIDE [Glipizide Xl] 2.5 mg PO DAILY 09/19/19 [History] metFORMIN [Glucophage XR] 1,000 mg PO BID 09/19/19 [History] Calcium Carbonate/Vitamin D3 [Calcium 500-Vit D3 400 Chew Tb] 2 tab PO Q48H 10/11/19 [History] Fish Oil/DHA/EPA [Fish Oil 1,200 MG] 1 cap PO Q48H 10/11/19 [History] - CURRENT (IN HOUSE) MEDS Current Meds: Current Medications Lactated Ringer's (Ringers, Lactated) 1,000 mls @ 125 mls/hr IV ASDIRECTED MATHEUS Stop: 04/23/20 23:00 Lidocaine/Sodium Bicarbonate (Buffered Lidocaine 1% In Ns 8.4%) 0.25 ml IDERM ONETIME PRN PRN Reason: Prior to IV Start Stop: 04/23/20 18:00 Sodium Chloride (Saline Flush) 10 ml FLUSH ASDIRECTED PRN PRN Reason: Keep Vein Open Stop: 04/23/20 18:00
[2020-04-23] MEDS ORDERED: Scopolamine 1.5 MG Transdermal Patch TOP SCH (09:01)
[2020-04-23] MEDS ORDERED: diphenhydrAMINE 50 MG/ML SDV IVPUSH PRN (09:31)
[2020-04-23] MEDS ORDERED: HYDROmorphone 0.5 MG/0.5 ML Syringe IVPUSH ONE (09:31)
[2020-04-23] MEDS ORDERED: fentaNYL 100 MCG/2 ML SDV IVPUSH PRN (09:31)
[2020-04-23] MEDS ORDERED: Propofol 200 MG/20 ML SDV ONE (09:42)
[2020-04-23] MEDS ORDERED: fentaNYL 250 MCG/5 ML SDV ONE (09:43)
[2020-04-23] MEDS ORDERED: Midazolam 1 MG/ML 2 ML SDV ONE (09:43)
[2020-04-23] MEDS ORDERED: Rocuronium 50 MG/5 ML Vial ONE ×2 (09:44→11:42)
[2020-04-23] MEDS ORDERED: Lidocaine 1% 4 ML ONE (09:45)
[2020-04-23] MEDS ORDERED: Ondansetron 4 MG/2 ML SDV ONE (09:46)
[2020-04-23] MEDS ORDERED: Dexamethasone 4 MG/ML 5 ML MDV ONE (09:46)
[2020-04-23] MEDS ORDERED: Bupivacaine 0.5%/EPINEPHrine 1:200,000 50 ML MDV ONE (09:57)
[2020-04-23] MEDS ORDERED: ePHEDrine Sulfate/0.9% NaCl/Pf 25 MG/5 ML SYRINGE IV ONE (11:08)
[2020-04-23] MEDS ORDERED: Lactated Ringers 1,000 ML ONE (11:13)
[2020-04-23] MEDS ORDERED: HYDROmorphone 0.5 MG/0.5 ML Syringe ONE ×3 (11:16→11:44)
[2020-04-23] MEDS ORDERED: Ketamine 500 mg/10 ML MDV ONE (11:25)
[2020-04-23] MEDS ORDERED: Labetalol 100 MG/20 ML MDV ONE (11:38)
[2020-04-23] MEDS ORDERED: Ketorolac 15 MG/ML SDV ONE (12:39)
[2020-04-23] MEDS ORDERED: Morphine 2 MG/ML SYRINGE IVPUSH PRN (12:53)
--- NOTE | 2020-04-23 12:53 | PCM.PRNOTE ---
- Free Text/Narrative Note: Date: 04/23/2020 Surgeon: Joseph Rojas MD Diagnosis: GERD with small hiatal hernia Antibiotic: 2 g ancef IV Estimated blood loss: 10 cc DVT prophylaxis: SCD Complications: none Findings: small hiatal hernia. Toupet fundoplication constructed. Detailed report: The patient was placed spine on the operating table and underwent general endotracheal anesthesia. A huddleston catheter was placed, and pre-operative antibiotics was administered. SCDs were placed, and the patient was placed in lithotomy. Timeout was performed. A Veress needle was inserted at Palmers point and the abdominal cavity was insufflated to 15 mm Hg. A needle and syringe were used to aspirate pneumoperitoneum at a planned 12 mm laparoscopic port site 15 cm inferior to the xiphoid process and 2 cm to the left of midline. A 12 mm bladed trocar was then placed at the site. A 10 mm 30 degree laparoscope was inserted into the abdomen. Safe placement with the Veress was confirmed visually and the needle was removed. The patient was placed in steep reverse Trendelenburg. Additional ports were then placed: a 5 mm left lateral port for the interior design assistant, a 5 mm right lateral port for the liver retractor, and a 12 mm port at the left subcostal margin along the midclavicular line. The liver retractor was set up using the Bookwalter post and snake arm retractor, and the left lobe of the liver was lifted and secured anteriorly, exposing the proximal anterior part of the stomach. A small hiatal hernia was evident. An additional 5 mm port was placed inferior to the right subcostal margin for the surgeons left hand. The hernia contents were reduced. The [place] Ligasure was then used to divide the pars flaccida and expose the right pillar of the tiffany. Careful blunt dissection technique was used to separate the crural muscle from the medial esophagus. Once the posterior mediastinum was entered, the phrenoesophageal ligament was divided anteriorly and laterally. Next, the omentum was divided along the greater curvature starting at the midportion of the stomach. The lesser sac was entered. Short gastric vessels were divided using the Ligasure. This plane of dissection met up with the crural dissection. A grasper was passed from medial to lateral, posterior to the esophagus. A inch bakrai drain was passed around the distal esophagus above the hernia sac and secured with the Endoloop. A locking grasper was placed on the bakari and the stomach was retracted inferolaterally. Dissection continued with the [place] into the hiatus, mobilizing the esophagus well up into the chest. A single 0 ethibond pledgeted suture were used to close the hiatus, bringing the pillars of the crura together posterior to the esophagus. The fundus of the stomach was then passed posteriorly from left to right in order to position for a Toupet fundoplication. 2-0 ethibond sutures were used to secure the wrapped fundus in place to the anterolateral esophagus, three stitches on each side, to create a 270 degree wrap. The fundoplication measured about 3 cm in length. The larger port sites were closed at the level of fascia using 0 vicryl suture on the laparoscopic suture passer. The liver retractor was removed and insufflation released. All incisions were closed at the level of the skin with vicryl suture and dressed with dermabond. The patient tolerated the procedure well, was extubated in the operating room and transferred to the recovery room for routine post-anesthesia care.
--- NOTE | 2020-04-23 12:57 | PCM.POSTAN ---
POST ANESTHESIA ASSESSMENT - MENTAL STATUS Mental Status: Other (drowsy ) - VITAL SIGNS Vital Signs: Last Vital Signs Temp 36.1 C 04/23/20 12:49 Pulse 65 04/23/20 09:01 Resp 13 04/23/20 12:49 BP 127/75 04/23/20 12:49 Pulse Ox 95 04/23/20 12:49 - RESPIRATORY Respiratory Status: Respiratory Rate WNL, Airway Patent, O2 Saturation Stable, Supplemental Oxygen - CARDIOVASCULAR CV Status: Pulse Rate WNL, Blood Pressure Stable - GASTROINTESTINAL GI Status: No Symptoms - PAIN Pain Score: 0 - POST OP HYDRATION Hydration Status: Adequate & Stable
[2020-04-23] MEDS ORDERED: Lactated Ringers 1,000 ML IV SCH (13:00)
[2020-04-23] MEDS: oxyCODONE 5 MG Tab PO PRN ×2 (15:36→23:20)
[2020-04-23] MEDS: Lactated Ringers 1,000 ML IV SCH (15:38)
[2020-04-23] MEDS: Acetaminophen 325 MG Tab PO SCH ×2 (15:45→21:38)
[2020-04-23] MEDS: Heparin Sodium 5,000 Units/ML Vial SUBCUT SCH ×3 (15:45→23:19)
[2020-04-24] MEDS: Lactated Ringers 1,000 ML IV SCH (01:33)
[2020-04-24] MEDS: Acetaminophen 325 MG Tab PO SCH ×2 (05:39→12:55)
[2020-04-24] MEDS: Heparin Sodium 5,000 Units/ML Vial SUBCUT SCH ×2 (05:44→12:55)
[2020-04-24] MEDS ORDERED: Ondansetron 4 MG Tab.DIS PO PRN (08:14)
[2020-04-24] MEDS ORDERED: Simethicone 80 MG Tab.Chew PO PRN (08:15)
--- NOTE | 2020-04-24 08:46 | PCM48HPAN ---
Post Anesthesia Note - EVALUATION WITHIN 48HRS OF ANESTHETIC Vital Signs in Normal Range: Yes Patient Participated in Evaluation: Yes Respiratory Function Stable: Yes Airway Patent: Yes Cardiovascular Function Stable: Yes Hydration Status Stable: Yes Pain Control Satisfactory: Yes Nausea and Vomiting Control Satisfactory: Yes Mental Status Recovered: Yes Vital Signs: Last Vital Signs Temp 36.8 C 04/24/20 03:26 Pulse 60 04/24/20 03:26 Resp 18 04/24/20 03:26 BP 165/78 H 04/24/20 03:26 Pulse Ox 96 04/24/20 03:26
[2020-04-24] MEDS: oxyCODONE 5 MG Tab PO PRN (10:07)
[2020-04-24] MEDS ORDERED: Losartan 25 MG Tab PO SCH (11:45)
--- NOTE | 2020-04-24 12:26 | PCM.DCSUM1 ---
Discharge Summary - Hospital Course Free Text/Narrative:: The patient presented for elective partial fundoplication for hiatal hernia/GERD on 04/23. The operation was completed without complication and she did well postoperatively. She was kept overnight for observation and deemed fit for discharge to home on post-op day 1. - Discharge Data Discharge Date: 04/24/20 Discharge Disposition: Home, Self-Care 01 Condition: Good - Referral to Home Health Primary Care Physician: Chikis Andrew PA-C - Patient Summary/Data Operative Procedure(s) Performed: laparoscopic hiatal hernia repair and Toupet fundoplication - Patient Instructions Diet: Full Liquid Diet Diet, Other: follow instructions on diet advancement in discharge paperwork Activity: No Lifting Over 10 Pounds Showering/Bathing: May Shower, No Tub Bathing/Swimming Wound/Incision Care: Keep Operative Site/Wound Site Clean and Dry Notify Provider of: Fever, Increased Pain, Swelling and Redness, Drainage - Discharge Plan *PRESCRIPTION DRUG MONITORING PROGRAM REVIEWED*: Not Applicable *COPY OF PRESCRIPTION DRUG MONITORING REPORT IN PATIENT DORIE: Not Applicable Prescriptions/Med Rec: Ondansetron [Ondansetron ODT] 4 mg PO Q6H PRN #20 tab.rapdis PRN Reason: Nausea oxyCODONE 5 mg PO Q6H PRN #15 tab PRN Reason: Pain Home Medications: Home Meds Ascorbic Acid [Vitamin C] 500 mg PO DAILY 09/19/19 [History] Cholecalciferol (Vitamin D3) [Vitamin D3] 1,000 unit PO DAILY 09/19/19 [History] Cyanocobalamin (Vitamin B-12) [Vitamin B-12] 2,500 mcg PO DAILY 09/19/19 [History] Dulaglutide [Trulicity] 1.5 mg SQ WE 09/19/19 [History] Losartan [Cozaar] 25 mg PO DAILY 09/19/19 [History] Pravastatin [Pravachol] 40 mg PO DAILY 09/19/19 [History] Red Yeast Rice 600 dose PO Q48H 09/19/19 [History] glipiZIDE [Glipizide Xl] 2.5 mg PO DAILY 09/19/19 [History] metFORMIN [Glucophage XR] 1,000 mg PO BID 09/19/19 [History] Calcium Carbonate/Vitamin D3 [Calcium 500-Vit D3 400 Chew Tb] 2 tab PO Q48H 10/11/19 [History] Fish Oil/DHA/EPA [Fish Oil 1,200 MG] 1 cap PO Q48H 10/11/19 [History] Ondansetron [Ondansetron ODT] 4 mg PO Q6H PRN #20 tab.rapdis 04/24/20 [Rx] oxyCODONE 5 mg PO Q6H PRN #15 tab 04/24/20 [Rx] Oxygen Therapy Mode: Room Air Patient Handouts: Eating Plan After Tessa Fundoplication, Toupet Fundoplication, Care After Referrals: Chikis Andrew PA-C [Primary Care Provider] - (See PCP post d/c.) - Discharge Summary/Plan Comment DC Time >30 min.: No - Patient Data Vitals - Most Recent: Last Vital Signs Temp 36.8 C 04/24/20 11:28 Pulse 59 L 04/24/20 11:28 Resp 20 04/24/20 11:28 BP 170/84 H 04/24/20 11:51 Pulse Ox 96 04/24/20 11:28 Weight - Most Recent: 63.957 kg I&O - Last 24 hours: Intake & Output 04/23/20 04/24/20 04/24/20 22:59 06:59 14:59 Intake Total 580 1320 400 Output Total 1800 Balance 580 -480 400 Lab Results - Last 24 hrs: Laboratory Results - last 24 hr 04/23/20 Range/Units 19:50 POC Glucose 148 H (80-115) mg/dL Med Orders - Current: Current Medications Acetaminophen (Tylenol) 975 mg PO Q8H [facility] Last Admin: 04/24/20 05:39 Dose: 975 mg Documented by: Heparin Sodium (Porcine) (Heparin Sodium) 5,000 units SUBCUT Q8H [facility] Last Admin: 04/24/20 05:44 Dose: Not Given Documented by: Losartan Potassium (Cozaar) 25 mg PO DAILY [facility] Last Admin: 04/24/20 11:51 Dose: 25 mg Documented by: Ondansetron HCl (Zofran Odt) 4 mg PO Q6H PRN PRN Reason: Nausea/Vomiting Oxycodone HCl (Oxycodone) 5 mg PO Q4H PRN PRN Reason: Pain (moderate 4-6) Last Admin: 04/24/20 10:07 Dose: 5 mg Documented by: Simethicone (Simethicone) 80 mg PO Q4H PRN PRN Reason: Gas Discontinued Medications Bupivacaine HCl/Epinephrine Bitart (Marcaine 0.5%/Epinephrine 1:200,000) Confirm Administered Dose 50 ml .ROUTE .STK-MED ONE Stop: 04/23/20 09:58 Last Admin: 04/23/20 11:12 Dose: 50 ml Documented by: Dexamethasone (Dexamethasone) Confirm Administered Dose 20 mg .ROUTE .STK-MED ONE Stop: 04/23/20 09:47 Diphenhydramine HCl (Benadryl) 25 mg IVPUSH Q6H PRN PRN Reason: pruritis Stop: 04/23/20 13:00 Ephedrine Sulfate (Ephedrine 25 Mg/5 Ml Syringe) Confirm Administered Dose 25 mg IV .STK-MED ONE Stop: 04/23/20 11:09 Fentanyl (Sublimaze) 50 mcg IVPUSH Q5M PRN PRN Reason: Pain Stop: 04/23/20 13:00 Fentanyl (Sublimaze) Confirm Administered Dose 250 mcg .ROUTE .STK-MED ONE Stop: 04/23/20 09:44 Glycopyrrolate () Confirm Administered Dose 1 mg .ROUTE .STK-MED ONE Stop: 04/23/20 11:14 Hydromorphone HCl (Dilaudid) 0.5 mg IVPUSH ONETIME ONE Stop: 04/23/20 09:32 Last Admin: 04/23/20 15:19 Dose: Not Given Documented by: Hydromorphone HCl (Dilaudid) Confirm Administered Dose 0.5 mg .ROUTE .STK-MED ONE Stop: 04/23/20 11:17 Hydromorphone HCl (Dilaudid) Confirm Administered Dose 0.5 mg .ROUTE .STK-MED ONE Stop: 04/23/20 11:37 Hydromorphone HCl (Dilaudid) Confirm Administered Dose 0.5 mg .ROUTE .STK-MED ONE Stop: 04/23/20 11:45 Lactated Ringer's (Ringers, Lactated) 1,000 mls @ 125 mls/hr IV ASDIRECTED MATHEUS Stop: 04/23/20 23:00 Last Admin: 04/23/20 09:22 Dose: 125 mls/hr Documented by: Lidocaine HCl (Xylocaine-Mpf 1%) Confirm Administered Dose 4 mls @ as directed .ROUTE .STK-MED ONE Stop: 04/23/20 09:46 Lactated Ringer's (Ringers, Lactated) Confirm Administered Dose 1,000 mls @ as directed .ROUTE .STK-MED ONE Stop: 04/23/20 11:14 Lactated Ringer's (Ringers, Lactated) 1,000 mls @ 100 mls/hr IV ASDIRECTED MATHEUS Lactated Ringer's (Ringers, Lactated) 1,000 mls @ 100 mls/hr IV ASDIRECTED MATHEUS Last Admin: 04/24/20 01:33 Dose: 100 mls/hr Documented by: Ketamine HCl (Ketalar) Confirm Administered Dose 500 mg .ROUTE .STK-MED ONE Stop: 04/23/20 11:26 Ketorolac Tromethamine (Toradol) Confirm Administered Dose 15 mg .ROUTE .STK-MED ONE Stop: 04/23/20 12:40 Labetalol HCl (Normodyne) Confirm Administered Dose 100 mg .ROUTE .STK-MED ONE Stop: 04/23/20 11:39 Lidocaine/Sodium Bicarbonate (Buffered Lidocaine 1% In Ns 8.4%) 0.25 ml IDERM ONETIME PRN PRN Reason: Prior to IV Start Stop: 04/23/20 18:00 Last Admin: 04/23/20 09:22 Dose: 0.25 ml Documented by: Midazolam HCl (Versed 1 Mg/Ml) Confirm Administered Dose 2 mg .ROUTE .STK-MED ONE Stop: 04/23/20 09:44 Miscellaneous Medication (Phenylephrine 1 Mg/10 Ml-Ns) Confirm Administered Dose 1 mg IV .STK-MED ONE Stop: 04/23/20 11:07 Morphine Sulfate (Morphine) 1 mg IVPUSH Q4H PRN PRN Reason: Pain (severe 7-10) Neostigmine Methylsulfate (Neostigmine Methylsulfate) Confirm Administered Dose 5 mg .ROUTE .STK-MED ONE Stop: 04/23/20 11:14 Ondansetron HCl (Zofran) Confirm Administered Dose 4 mg .ROUTE .STK-MED ONE Stop: 04/23/20 09:47 Propofol (Diprivan 20 Ml) Confirm Administered Dose 200 mg .ROUTE .STK-MED ONE Stop: 04/23/20 09:43 Rocuronium [place] (Zemuron) Confirm Administered Dose 50 mg .ROUTE .STK-MED ONE Stop: 04/23/20 09:45 Rocuronium [place] (Zemuron) Confirm Administered Dose 50 mg .ROUTE .STK-MED ONE Stop: 04/23/20 11:43 Scopolamine (Transderm-Scop) 1.5 mg TOP ONETIME MATHEUS Stop: 04/23/20 12:00 Last Admin: 04/23/20 09:16 Dose: 1.5 mg Documented by: Sodium Chloride (Saline Flush) 10 ml FLUSH ASDIRECTED PRN PRN Reason: Keep Vein Open Stop: 04/23/20 18:00
== END 2020-04-24 14:24 | disposition home or self-care (01) ==
LOC: JD.SDS 08:54 → JD.MS 08:58 → JD.SDS 12:52 → INTOOBSV 12:53 → JD.MS 12:53
PROVIDERS: ADMIT Surgery; ATTEND Surgery
DX: K21.9 Gastro-esophageal reflux disease without esophagitis (principal); K44.9 Diaphragmatic hernia without obstruction or gangrene; E78.5 Hyperlipidemia, unspecified; I10 Essential (primary) hypertension; E11.9 Type 2 diabetes mellitus without complications; Z88.8 Allergy status to other drugs, medicaments and biological substances; Z79.899 Other long term (current) drug therapy; Z79.84 Long term (current) use of oral hypoglycemic drugs; Z98.890 Other specified postprocedural states
CPT/HCPCS: 36415; 43280; 51798; 80048; 82962; 85025; A9270; J0171; J1100; J1170; J1644; J1885; J2001; J2250; J2370; J2405; J2704; J2710; J3010; J3490; J7120; 00790; 99024; G0378

== ENCOUNTER 2023-11-02 09:35 | Emergency (ER) | payer MEDICARE, OTHER ==
[2023-11-02] MEDS: Diltiazem 25 MG/5 ML SDV IVPUSH ONE (10:15)
[2023-11-02] MEDS: Sodium Chloride 0.9% 100 ML ONE (10:16)
[2023-11-02] MEDS: Sodium Chloride 0.9% 1,000 ML IV SCH (10:26)
[2023-11-02] MEDS: Diltiazem 125 MG in Sodium Chloride 0.9% 100 ML IV SCH (10:26)
[2023-11-02 10:37] LABS: BASOPHILS ABSOLUTE AUTO 0.1 K/mm3 (0.0-0.2); BASOPHILS PERCENT AUTO 0.7 % (0.0-1.0); EOSINOPHILS PERCENT AUTO 0.4 % (0.0-6.0); HEMATOCRIT 42.3 % (37.0-47.0); HEMOGLOBIN 13.9 gm/dl (12.0-16.0); IMMATURE GRAN ABSOLUTE AUTO 0.01 K/mm3 (0.00-0.05); IMMATURE GRAN PERCENT AUTO 0.1 % (0.0-0.4); LYMPHOCYTES ABSOLUTE AUTO 1.7 K/mm3 (1.0-4.8); MEAN CORPUSCULAR HGB CONC 32.9 g/dl (32.0-36.0); MEAN CORPUSCULAR VOLUME 88.3 fl (83.0-99.0); MEAN PLATELET VOLUME 9.2 fl (9.4-12.3); MONOCYTES ABSOLUTE AUTO 0.5 K/mm3 (0.0-0.8); MONOCYTES PERCENT AUTO 6.6 % (0.0-8.0); NEUTROPHILS ABSOLUTE AUTO 5.2 K/mm3 (1.8-7.7); NEUTROPHILS PERCENT AUTO 69.2 % (41.0-71.0); PLATELET COUNT,PLT 212 K/mm3 (150-400); RED BLOOD CELL COUNT 4.79 M/mm3 (4.10-5.30); WHITE BLOOD CELL COUNT,WBC 7.48 K/mm3 (3.9-11.3)
[2023-11-02 10:52] LABS: HEMOGLOBIN A1C 7.1 %
[2023-11-02 11:10] LABS: PROTHROMBIN TIME 9.8 SECONDS (9.7-12.0)
[2023-11-02 11:12] LABS: PTT,PARTIAL THROMBOPLSTIN TIME 24.8 SECONDS (21.7-31.4)
[2023-11-02 11:14] LABS: INR < 0.93
[2023-11-02 11:27] LABS: A/G RATIO 1.2 (1-2); ALBUMIN 4.1 g/dl (3.4-5.0); ANION GAP 15.7 (5-15); BILIRUBIN TOTAL 0.5 mg/dL (0.2-1.0); C-REACTIVE PROTEIN 0.1 mg/dL (<0.30); CALCIUM 10.1 mg/dL (8.5-10.1); CREATININE 1.1 mg/dL (0.55-1.02); EST CRCL DRUG DOSING (CG) 38.8 mL/min; MAGNESIUM 1.8 mg/dL (1.8-2.4); POTASSIUM,K 4.7 mEq/L (3.5-5.1); PROTEIN TOTAL,TP 7.4 g/dl (6.4-8.2); TSH 1.887 uIU/mL (0.358-3.74)
[2023-11-02] MEDS: Diltiazem 120 MG Cap.CD PO ONE (12:01)
== END 2023-11-02 12:20 | disposition home or self-care (01) ==
LOC: JD.ED 09:35
DX: I48.91 Unspecified atrial fibrillation (principal); I10 Essential (primary) hypertension; E78.00 Pure hypercholesterolemia, unspecified; K21.9 Gastro-esophageal reflux disease without esophagitis; E11.9 Type 2 diabetes mellitus without complications; Z79.84 Long term (current) use of oral hypoglycemic drugs; Z79.899 Other long term (current) drug therapy; Z88.5 Allergy status to narcotic agent; Z88.8 Allergy status to other drugs, medicaments and biological substances
CPT/HCPCS: 36415; 71045; 80053; 83036; 83735; 83880; 84443; 84484; 85025; 85610; 85730; 86140; 93005; 96365; 99285; A9270; J3490; J7030; 93010; 99284